=== PATIENT | male | born 1930 | race Caucasian/White ===

== ENCOUNTER → 2016-12-28 | Outpatient (REF) ==
[2016-12-28 10:40] LABS: MEAN CORPUSCULAR HEMOGLOBIN 31.7 pg (27.0-33.0); MEAN CORPUSCULAR HGB CONC 33.3 g/dl (32.0-36.5); MEAN CORPUSCULAR VOLUME 95.2 fl (80.0-96.0); RED CELL DISTRIBUTION WIDTH 14.4 % (11.5-14.5); WHITE BLOOD COUNT 10.1 K/mm3 (4.0-10.0)
[2016-12-28 10:56] LABS: ANION GAP 8 MEQ/L (8-16); BLOOD UREA NITROGEN 22 MG/DL (7-18); CALCIUM LEVEL 8.1 MG/DL (8.8-10.2); CARBON DIOXIDE LEVEL 30 MEQ/L (21-32); CHLORIDE LEVEL 100 MEQ/L (98-107); CREATININE FOR GFR 0.97 MG/DL (0.70-1.30); GLOMERULAR FILTRATION RATE > 60.0 (>35); GLUCOSE, FASTING 245 MG/DL (83-110); POTASSIUM SERUM 3.9 MEQ/L (3.5-5.1); SODIUM LEVEL 138 MEQ/L (136-145)
== END ==
PROVIDERS: ATTEND Internal Medicine
DX: J18.9 Pneumonia, unspecified organism (principal)

== ENCOUNTER → 2016-12-29 | Outpatient (CLI) | payer MEDICARE, OTHER ==
[~2016-12-29] MED LIST: GASTROGRAFIN SOLUTION 30ML (Q9963) As Ordered ONE; ISOVUE-370 76% 100ML VIAL (Q9967) As Ordered ONE
--- NOTE | 2016-12-29 12:04 | REP ---
Clinical: Abdominal pain. Technique: Axial contrast enhanced images from the lung bases to the pubic symphysis using oral and 100 ml Isovue 370 intravenous contrast material with coronal and sagittal re-formations. Findings: Lung bases demonstrate chronic fibroatelectatic change. Visualized portions of the heart and pericardium normal. No pleural effusion. Liver, pancreas, gallbladder, bilateral adrenal glands are normal. The spleen demonstrates a lobulated hypodensity which may reflect cyst and can be correlated by ultrasound. Kidneys demonstrate chronic age-related cortical atrophic changes and small parapelvic cysts. The enteric system is without obstruction or acute inflammatory process. Percutaneous gastrostomy tube noted in the stomach. Colonic and sigmoid diverticulosis noted without acute diverticulitis. Pelvis demonstrates normal bladder and age appropriate prostate gland. No ascites. No free air. No significant adenopathy. No obvious mass lesion. Minimal atherosclerotic changes of the aorta and vasculature noted without aneurysm. Musculoskeletal structures demonstrate degenerative changes without focal osseous abnormality. Impression: 1. Lobulated hypodense lesion within the spleen cannot be excluded and correlation with ultrasound is recommended. 2. Colonic diverticulosis without acute diverticulitis. 3. Relatively normal appearance to the small bowel without obstruction or acute inflammatory process. 4. Further chronic changes as described above without acute abdominopelvic pathology. Signed by Nato Montgomery MD 12/29/2016 11:55 A
== END ==
LOC: M RAD 09:44
PROVIDERS: ATTEND Internal Medicine
DX: R26.81 Unsteadiness on feet (principal); M62.81 Muscle weakness (generalized)
CPT/HCPCS: 74177; Q9963; Q9967

== ENCOUNTER → 2017-01-01 | Outpatient (REF) ==
[2017-01-01 08:40] LABS: MEAN CORPUSCULAR HEMOGLOBIN 31.4 pg (27.0-33.0); MEAN CORPUSCULAR HGB CONC 33.9 g/dl (32.0-36.5); MEAN CORPUSCULAR VOLUME 92.8 fl (80.0-96.0); RED CELL DISTRIBUTION WIDTH 14.5 % (11.5-14.5); WHITE BLOOD COUNT 6.9 K/mm3 (4.0-10.0)
== END ==
LOC: M LAB REF 08:32
PROVIDERS: ATTEND Internal Medicine
DX: Z00.00 Encounter for general adult medical examination without abnormal findings (principal)

== ENCOUNTER → 2017-01-05 | Outpatient (REF) | payer MEDICARE, OTHER ==
[2017-01-05 10:57] LABS: MEAN CORPUSCULAR HEMOGLOBIN 32.2 pg (27.0-33.0); MEAN CORPUSCULAR HGB CONC 34.9 g/dl (32.0-36.5); MEAN CORPUSCULAR VOLUME 92.5 fl (80.0-96.0); RED CELL DISTRIBUTION WIDTH 14.2 % (11.5-14.5); WHITE BLOOD COUNT 6.5 K/mm3 (4.0-10.0)
[2017-01-05 11:21] LABS: ANION GAP 8 MEQ/L (8-16); BLOOD UREA NITROGEN 16 MG/DL (7-18); CALCIUM LEVEL 8.6 MG/DL (8.8-10.2); CARBON DIOXIDE LEVEL 30 MEQ/L (21-32); CHLORIDE LEVEL 100 MEQ/L (98-107); CREATININE FOR GFR 0.89 MG/DL (0.70-1.30); GLOMERULAR FILTRATION RATE > 60.0 (>35); GLUCOSE, FASTING 168 MG/DL (83-110); POTASSIUM SERUM 3.5 MEQ/L (3.5-5.1); SODIUM LEVEL 138 MEQ/L (136-145)
== END ==
PROVIDERS: ATTEND Internal Medicine
DX: J18.9 Pneumonia, unspecified organism (principal)

== ENCOUNTER → 2017-01-07 | Outpatient (REF) | payer MEDICARE, OTHER ==
--- NOTE | 2017-01-07 10:33 | REP ---
Clinical: Evaluate splenic lesions. Comparison: CT dated 12/29/2016. Technique: Real time fuentes scale ultrasound examination using curved array transducer. Findings: The left kidney is normal in reniform shape demonstrating chronic cortical thinning and increased renal sinus fat without hydronephrosis. Left kidney measures 11.3 x 5.9 x 6.4 cm. The spleen is enlarged measuring 13.8 x 6.4 x 10.5 cm and includes multiple hypoechoic lesions which are otherwise nonspecific. Differential diagnosis includes but is not limited to lymphoma and metastatic disease. Largest lesions measure up to 5 cm maximal diameter. No ascites. Impression: Multiple splenic mass lesions measuring up to 5 cm diameter are otherwise nonspecific. Differential diagnosis includes but is not limited to lymphoma and metastatic disease as well as splenic hemangiomas. Signed by Nato Montgomery MD 01/07/2017 10:25 A
== END ==
LOC: M RAD 08:55 → EDSTATUS 09:00 → M RAD 12:00
PROVIDERS: ATTEND Physician Assistant
DX: R47.01 Aphasia (principal); R13.12 Dysphagia, oropharyngeal phase

== ENCOUNTER → 2017-01-07 | Outpatient (REF) ==
[2017-01-07 10:29] LABS: MEAN CORPUSCULAR HGB CONC 35.2 g/dl (32.0-36.5); MEAN CORPUSCULAR VOLUME 93.9 fl (80.0-96.0); RED CELL DISTRIBUTION WIDTH 14.4 % (11.5-14.5); WHITE BLOOD COUNT 8.2 K/mm3 (4.0-10.0)
[2017-01-07 10:52] LABS: ANION GAP 7 MEQ/L (8-16); BLOOD UREA NITROGEN 19 MG/DL (7-18); CALCIUM LEVEL 8.2 MG/DL (8.8-10.2); CARBON DIOXIDE LEVEL 31 MEQ/L (21-32); CHLORIDE LEVEL 98 MEQ/L (98-107); CREATININE FOR GFR 0.94 MG/DL (0.70-1.30); GLOMERULAR FILTRATION RATE > 60.0 (>35); GLUCOSE, FASTING 179 MG/DL (83-110); POTASSIUM SERUM 3.8 MEQ/L (3.5-5.1); SODIUM LEVEL 136 MEQ/L (136-145)
== END ==
PROVIDERS: ATTEND Internal Medicine
DX: I10 Essential (primary) hypertension (principal)

== ENCOUNTER → 2017-01-14 | Outpatient (REF) ==
--- NOTE | 2017-01-14 15:07 | REP ---
Chest x-ray: Semi-erect AP view. History: Question aspiration. Findings: The lungs are symmetrically aerated and no infiltrate is seen. The pleural angles are sharp. Heart is not felt to be enlarged. Median sternotomy wires are seen. Pulmonary vasculature is not increased. Impression: No acute disease. Signed by Cornelio Ma MD 01/14/2017 04:18 P
[2017-01-14 18:41] LABS: MEAN CORPUSCULAR HEMOGLOBIN 33.4 pg (27.0-33.0); MEAN CORPUSCULAR HGB CONC 35.5 g/dl (32.0-36.5); MEAN CORPUSCULAR VOLUME 94.2 fl (80.0-96.0); RED CELL DISTRIBUTION WIDTH 14.8 % (11.5-14.5); WHITE BLOOD COUNT 6.8 K/mm3 (4.0-10.0)
[2017-01-14 19:08] LABS: ANION GAP 10 MEQ/L (8-16); BLOOD UREA NITROGEN 19 MG/DL (7-18); CALCIUM LEVEL 8.2 MG/DL (8.8-10.2); CARBON DIOXIDE LEVEL 27 MEQ/L (21-32); CHLORIDE LEVEL 100 MEQ/L (98-107); CREATININE FOR GFR 0.87 MG/DL (0.70-1.30); GLOMERULAR FILTRATION RATE > 60.0 (>35); GLUCOSE, FASTING 140 MG/DL (83-110); POTASSIUM SERUM 3.5 MEQ/L (3.5-5.1); SODIUM LEVEL 137 MEQ/L (136-145)
== END ==
PROVIDERS: ATTEND Internal Medicine
DX: R11.10 Vomiting, unspecified (principal)

== ENCOUNTER 2018-03-20 19:23 | Emergency (ER) | payer MEDICARE, OTHER | END 2018-03-21 00:19 | disposition home or self-care (01) | LOC: M ED 03-21 00:19 | DX: Z43.1 Encounter for attention to gastrostomy (principal); F03.90 Unspecified dementia, unspecified severity, without behavioral disturbance, psychotic disturbance, mood disturbance, and anxiety; I10 Essential (primary) hypertension | CPT/HCPCS: 43760 ==